=== PATIENT | male | born 1955 | race Hispanic/Latino ===

== ENCOUNTER → 2023-06-18 | Outpatient (CLI) | payer OTHER | END | disposition home or self-care (01) | LOC: RAH 09:52 | PROVIDERS: ATTEND Family Medicine | DX: K40.90 Unilateral inguinal hernia, without obstruction or gangrene, not specified as recurrent (principal); Z13.6 Encounter for screening for cardiovascular disorders; R41.3 Other amnesia | CPT/HCPCS: 70450; 76775; 76882 ==

== ENCOUNTER → 2024-10-06 | Outpatient (CLI) | payer OTHER ==
[2024-10-06 22:02] VITALS: PULSE 74; RESP 10
[2024-10-06 22:30] VITALS: PULSE 66; RESP 12
[2024-10-06 23:07] VITALS: PULSE 70; RESP 10
[2024-10-06 23:30] VITALS: PULSE 62; RESP 10
[2024-10-07] VITALS (11 sets, daily range): PULSE 53–63; RESP 10–18
== END | disposition home or self-care (01) ==
LOC: SLP 20:24
PROVIDERS: ATTEND Family Medicine
DX: G47.33 Obstructive sleep apnea (adult) (pediatric) (principal); R06.83 Snoring; I10 Essential (primary) hypertension
CPT/HCPCS: 95810

== ENCOUNTER → 2024-11-26 | Outpatient (CLI) | payer OTHER ==
[2024-11-26] VITALS (11 sets, daily range): PULSE 67–86; RESP 4–16
[2024-11-27] VITALS (14 sets, daily range): PULSE 71–88; RESP 14–20
== END | disposition home or self-care (01) ==
LOC: SLP 20:20
PROVIDERS: ATTEND Family Medicine
DX: G47.33 Obstructive sleep apnea (adult) (pediatric) (principal); R06.83 Snoring; I10 Essential (primary) hypertension
CPT/HCPCS: 95811